=== PATIENT | male | born 1955 | race Two or more races ===

== ENCOUNTER 2018-03-17 10:24 | Emergency (ER) | payer OTHER ==
[~2018-03-17] VITALS: Ht 177.8 cm; Wt 158.8 kg
--- NOTE | 2018-03-17 12:00 | NUR ---
PT OK TO BE D/C, CALLING TRANSPORT BACK TO [facility].
--- NOTE | 2018-03-17 12:10 | NUR ---
CALLED [facility] FOR [facility]LS FOR THIS PATIENT ETA 1500 TRIP #[id number]
--- NOTE | 2018-03-17 12:15 | NUR ---
[facility] UPDATED ETA 1419
[2018-03-17] MEDS ORDERED: HYDROCODONE/APAP 5/325MG 1 EACH TABLET PO ONE (13:00)
[2018-03-17] MEDS ORDERED: HYDROCODONE/APAP 5/325MG 1 EACH TABLET ONE (13:06)
--- NOTE | 2018-03-17 14:31 | NUR ---
ETA FOR TRANSPORT 10 MINUTES
--- NOTE | 2018-03-17 15:38 | NUR ---
PT DC BACK TO [facility], BY 2 EMT'S VIA [facility]
[2018-03-17 15:40] VITALS: BP 133/80
== END 2018-03-17 15:42 | disposition home or self-care (01) ==
LOC: ER 10:26
DX: S39.012A Strain of muscle, fascia and tendon of lower back, initial encounter (principal); G35 Multiple sclerosis; Z96.651 Presence of right artificial knee joint; Z98.890 Other specified postprocedural states; X50.1XXA Overexertion from prolonged static or awkward postures, initial encounter; Y93.89 Activity, other specified; Y92.89 Other specified places as the place of occurrence of the external cause; Y99.8 Other external cause status
CPT/HCPCS: 72100-TC; A4606; Z7610